=== PATIENT | male | born 1980 | race Two or more races ===

== ENCOUNTER 2017-09-09 06:07 | Emergency (ER) | payer SELFPAY ==
[2017-09-09 06:57] LABS: Hematocrit 52 % (42-52); Hemoglobin 17.7 g/dl (14.0-18.0); Mean Corpuscular HGB Conc 34 g/dl (31-36); Mean Corpuscular Hemoglobin 33 pg (27-31); Mean Corpuscular Volume 97 fL (80-94); Mean Platelet Volume 9 um3 (7.4-10.4); Red Blood Count 5.33 10^6/ul (4.0-5.4); Red Cell Distribution Width 13 % (10.5-15); White Blood Count 9.5 10^3/ul (3.5-10.8)
[2017-09-09 07:12] LABS: Albumin 4.2 g/dL (3.2-5.2); BUN/Creatinine Ratio 9.7 (8-20); C Reactive Protein 2.55 mg/L (< 5.00); Calcium 9.4 mg/dL (8.6-10.3); EGFR African American 105.1 (>60); EGFR Non-African American 81.7 (>60); Globulin 3.2 g/dL (2-4); Total Bilirubin 0.4 mg/dL (0.2-1.0); Total Protein 7.4 g/dL (6.4-8.9); Troponin I 0.01 ng/mL (<0.04)
[2017-09-09 07:17] VITALS: BP 148/92
--- NOTE | 2017-09-09 07:18 | ED ---
Maxim Nielson Nikita, scribed for Vijay Sifuentes MD on 09/09/17 at 0620 . Substance Abuse/Use - HPI Summary HPI Summary: This patient is a 36 year old M BIBA to ED with a chief complaint of cocaine abuse [employer]. The pt crushed 2 lines of cocaine on his lips when the police knocked down his door and cuffed him. The patient rates the pain 0/10 in severity. Symptoms aggravated by nothing. Symptoms alleviated by nothing. Patient reports diaphoresis and difficulty breathing. Patient denies CP and LOC. - History Of Current Complaint Chief Complaint: EDSubstanceAbuse Stated Complaint: OVERDOSE Hx Obtained From: Patient Onset/Duration of Drug/ETOH Abuse: Minutes Ingestion History: Type/Name Of Drug - cocaine, Amount Ingested - 2 lines, crushed Overdose Characteristics: Oral Timing Of Abuse: Binge Use Aggravating Factor(s): Nothing Alleviating Factor(s): Nothing Associated Signs And Symptoms: Other: - Patient reports diaphoresis and difficulty breathing. Patient denies CP and LOC. PMH/Surg Hx/FS Hx/Imm Hx Endocrine/Hematology History: Denies: Hx Diabetes Cardiovascular History: Reports: Other Cardiovascular Problems/Disorders - "irregular heart beat" Denies: Hx Coronary Artery Disease, Hx Hypertension Infectious Disease History: No Infectious Disease History: Denies: Traveled Outside the [place] in Last 30 Days - Family History Known Family History: Positive: Cardiac Disease, Diabetes - Social History Hx Substance Use: Yes Substance Use Type: Reports: Cocaine Review of Systems Positive: Skin Diaphoresis Negative: Chest Pain Positive: Other - difficulty breathing Neurological: Other - denies LOC All Other Systems Reviewed And Are Negative: Yes Physical Exam Triage Information Reviewed: Yes Vital Signs On Initial Exam: Initial Vitals Temp Pulse Resp BP Pulse Ox 97.6 F 82 16 138/65 98 09/09/17 06:10 09/09/17 06:10 09/09/17 06:10 09/09/17 06:10 09/09/17 06:10 Vital Signs Reviewed: Yes Appearance: Positive: Well-Appearing, No Pain Distress Skin: Positive: Warm, Skin Color Reflects Adequate Perfusion, Dry Head/Face: Positive: Normal Head/Face Inspection Eyes: Positive: Other: - pupils are 2mm and reactive to light ENT: Positive: Normal ENT inspection Neck: Positive: Supple, Nontender Respiratory/Lung Sounds: Positive: Clear to Auscultation, Breath Sounds Present Cardiovascular: Positive: RRR Abdomen Description: Positive: Nontender, Soft Bowel Sounds: Positive: Present Musculoskeletal: Positive: Normal, Strength/ROM Intact Neurological: Positive: Normal, Sensory/Motor Intact, Alert, Oriented to Person Place, Time Psychiatric: Positive: Affect/Mood Appropriate Diagnostics - Vital Signs Vital Signs Temp Pulse Resp BP Pulse Ox 09/09/17 06:10 97.6 F 82 16 138/65 98 - Laboratory Lab Results: Lab Results 09/09/17 09/09/17 Range/Units 06:30 06:30 WBC 9.5 (3.5-10.8) 10^3/ul RBC 5.33 (4.0-5.4) 10^6/ul Hgb 17.7 (14.0-18.0) g/dl Hct 52 (42-52) % MCV 97 H (80-94) fL MCH 33 H (27-31) pg MCHC 34 (31-36) g/dl RDW 13 (10.5-15) % Plt Count 210 (150-450) 10^3/ul MPV 9 (7.4-10.4) um3 Neut % (Auto) 55.4 (38-83) % Lymph % (Auto) 35.3 (25-47) % [place] % (Auto) 7.9 (1-9) % Eos % (Auto) 0.9 (0-6) % Baso % (Auto) 0.5 (0-2) % Absolute Neuts (auto) 5.2 (1.5-7.7) 10^3/ul Absolute Lymphs (auto) 3.3 (1.0-4.8) 10^3/ul Absolute Monos (auto) 0.8 (0-0.8) 10^3/ul Absolute Eos (auto) 0.1 (0-0.6) 10^3/ul Absolute Basos (auto) 0 (0-0.2) 10^3/ul Absolute Nucleated RBC 0.01 10^3/ul Nucleated RBC % 0.1 Sodium 136 (133-145) mmol/L Potassium Pending Chloride 103 (101-111) mmol/L Carbon Dioxide 24 (22-32) mmol/L Anion Gap Pending BUN 10 (6-24) mg/dL Creatinine 1.03 (0.67-1.17) mg/dL Est GFR ( Amer) 105.1 (>60) Est GFR (Non-Af Amer) 81.7 (>60) BUN/Creatinine Ratio 9.7 (8-20) Glucose 127 H (70-100) mg/dL Calcium 9.4 (8.6-10.3) mg/dL Total Bilirubin 0.40 (0.2-1.0) mg/dL AST Pending ALT 26 (7-52) U/L Alkaline Phosphatase 67 (34-104) U/L Troponin I 0.01 (<0.04) ng/mL C-Reactive Protein 2.55 (< 5.00) mg/L Total Protein 7.4 (6.4-8.9) g/dL Albumin 4.2 (3.2-5.2) g/dL Globulin 3.2 (2-4) g/dL Albumin/Globulin Ratio 1.3 (1-3) Result Diagrams: 09/09/17 06:30 09/09/17 06:30 Lab Statement: Any lab studies that have been ordered have been reviewed, and results considered in the medical decision making process. - EKG 0616 Cardiac Rate: NL EKG Rhythm: Sinus Rhythm - [address] Segment: Normal Ectopy: None Course/Dx - Course Assessment/Plan: This patient is a 36 year old M BIBA to ED with a chief complaint of cocaine abuse [employer]. The pt crushed 2 lines of cocaine on his lips when the police knocked down his door and cuffed him. The patient rates the pain 0/10 in severity. Symptoms aggravated by nothing. Symptoms alleviated by nothing. Patient reports diaphoresis and difficulty breathing. Patient denies CP and LOC. Medications reviewed. EKG reveals NSR at 78 bpm, nml ST, and no ectopy. Pt will be discharged. Pt is agreeable with this plan. WELL IN ED. BY THE STORY, THE PATIENT ONLY HAD 2 LINES OF COCAINE. D/C HOME; F/U PMD; RETURN IF WORSE. - Diagnoses Provider Diagnoses: Cocaine abuse Discharge - Discharge Plan Condition: Stable Disposition: HOME Patient Education Materials: Cocaine Abuse (ED) Referrals: Non Staff,Doctor [Primary Care Provider] - [facility] [place]Outside] Additional Instructions: FOLLOW UP WITH YOUR DOCTOR. RETURN TO THE EMERGENCY DEPARTMENT FOR ANY WORSENING OF YOUR CONDITION OR QUESTIONS OR CONCERNS. The documentation as recorded by the Maxim acosta Nikita accurately reflects the service I personally performed and the decisions made by me, Vijay Sifuentes MD.
[2017-09-09 07:51] LABS: Potassium 3.1 mmol/L (3.5-5.0)
== END 2017-09-09 07:36 | disposition home or self-care (01) ==
LOC: ED 06:07
DX: F14.10 Cocaine abuse, uncomplicated (principal)
CPT/HCPCS: 36415; 80053; 84484; 85025; 86140; 86703; 93005; 99282

== ENCOUNTER 2018-08-24 02:30 | Emergency (ER) | payer SELFPAY ==
--- NOTE | 2018-08-24 02:56 | ED ---
Complex/Multi-Sys Presentation - HPI Summary HPI Summary: A 37 y/o M presents to ED with c/o lightheadedness onset 0100 this date. Associated sx: diaphoresis.Pt was sleeping and when he woke up, he was diaphoretic and lightheaded. Denies CP, diarrhea, abd pain. Pt notes also having dental pain, he does not have a dentist and is not on ABX. He took a small piece of sublingual suboxone at 2330 yesterday, hoping it would help with the pain. Pt denies taking street drugs. - History Of Current Complaint Chief Complaint: EDGeneral Hx Obtained From: Patient Onset/Duration: Sudden Onset, Still Present Timing: Constant Associated Signs And Symptoms: Positive: Diaphoresis. Negative: Chest Pain, Diarrhea, Abdominal Pain - Allergies/Home Medications Allergies/Adverse Reactions: Allergies Allergy/AdvReac Type Severity Reaction Status Date / Time No Known Allergies Allergy Verified 08/24/18 02:55 PMH/Surg Hx/FS Hx/Imm Hx Previously Healthy: No Endocrine/Hematology History: Denies: Hx Diabetes Cardiovascular History: Reports: Other Cardiovascular Problems/Disorders - "irregular heart beat" Denies: Hx Coronary Artery Disease, Hx Hypertension Infectious Disease History: No Infectious Disease History: Denies: Traveled Outside the [place] in Last 30 Days - Family History Known Family History: Positive: Cardiac Disease - mother - heart transplant, Diabetes - mother - Social History Occupation: Unemployed - OTHER Lives: Alone Alcohol Use: Occasionally Hx Substance Use: Yes Substance Use Type: Reports: Cocaine, Marijuana Hx Tobacco Use: No Smoking Status (MU): Never Smoked Tobacco Review of Systems Positive: Skin Diaphoresis Negative: Chest Pain Negative: Abdominal Pain, Diarrhea Neurological: Other - pos: lightheadedness All Other Systems Reviewed And Are Negative: Yes Physical Exam - Summary Physical Exam Summary: Appearance: Well appearing, no pain distress Skin: warm, lightly diaphoretic, reflects adequate perfusion Head/face: normal Eyes: EOMI, AMBER ENT: mucous membranes moist Dental: multiple caries, some pericoronitis of lower 3rd molars Neck: supple, non-tender Respiratory: CTA, breath sounds present Cardiovascular: pulses symmetrical, arthur but regular, no murmur Abdomen: non-tender, soft Bowel Sounds: present Musculoskeletal: normal, strength/ROM intact Neuro: normal, sensory motor intact, A&Ox3 Triage Information Reviewed: Yes Vital Signs On Initial Exam: Initial Vitals Temp Pulse Resp BP Pulse Ox 97.0 F 62 16 131/64 95 08/24/18 02:40 08/24/18 02:40 08/24/18 02:40 08/24/18 02:40 08/24/18 02:40 Vital Signs Reviewed: Yes Diagnostics - Vital Signs Vital Signs Temp Pulse Resp BP Pulse Ox 08/24/18 02:51 56 4 95 08/24/18 02:40 97.0 F 62 16 131/64 95 - Laboratory Result Diagrams: 08/24/18 02:55 08/24/18 04:15 Lab Statement: Any lab studies that have been ordered have been reviewed, and results considered in the medical decision making process. - EKG 0249 Cardiac Rate: Bradycardia - 43bpm EKG Rhythm: Sinus Bradycardia Summary of EKG Findings: nml axis, J point elevation in v2 and v3 Re-Evaluation - Re-Evaluation 1 Re-Evaluation Time: 04:45 Change: Improved Comment: Discussing results with pt. 2 Re-Evaluation Time: 05:59 Change: Improved Comment: Pt is sleeping comfortably, blood pressures are normal. 3 Re-Evaluation Time: 06:43 Change: Improved Complex Multi-Symp Course/Dx Course Of Treatment: Patient presents with orthostasis, nausea and vomiting after taking Suboxone he obtained from a friend for dental pain. He was a little bradycardic here when symptomatic. This resolved with IV hydration. He received 3 L of IV fluids and antiemetics. His laboratories are relatively benign other than elevated lactate. There is no significant dental infection but I will cover him with penicillin and refer him to dental. He is encouraged to not use any street drugs or prescription medications obtained from others. - Diagnoses Differential Diagnoses/HQI/PQRI: Metabolic Abnormality, Other - Sepsis, drug interaction, drug side effect Provider Diagnoses: Medication side effect, Dental abscess - Critical Care Time Critical Care Time: 30-74 min - 30 mins. CCT is EXCLUSIVE of separately billable procedures. Discharge - Sign-Out/Discharge Documenting (check all that apply): Patient Departure - DC - Discharge Plan Condition: Improved Disposition: HOME Prescriptions: Naproxen [Naproxen 500 mg tab] 500 mg PO BID PRN #12 tablet.dr SUGGS Reason: Pain Ondansetron HCl [Zofran] 4 mg PO TID PRN #12 tablet PRN Reason: Nausea Penicillin VK 500 MG TAB(NF) [Penicillin VK 500 mg Tab] 500 mg PO QID #40 tab Patient Education Materials: Dental Abscess (ED) Forms: *Work Release Referrals: [facility] [Outside] [facility] [Outside] PATRICK CLARKE [Doctor of Dental Surgery] - Additional Instructions: Rosalino Roman (Vincent): -- call today to schedule prompt follow up. Do not take medications that are not prescribed to you. Return if worse, repeat of symptoms, fever, vomiting, new symptoms or other concerns as discussed. - Billing Disposition and Condition Condition: IMPROVED Disposition: Home - Attestation Statements Document Initiated by Aaliyahibmarcus: Yes Documenting Scribe: Toni Ash Provider For Whom Yannick is Documenting (Include Credential): Dr. Sunil Estes MD Scribe Attestation: IToni scribed for Dr. Sunil Estes MD on 08/24/18 at 0713. Scribe Documentation Reviewed: Yes Provider Attestation: The documentation as recorded by the Toni acosta accurately reflects the service I personally performed and the decisions made by me, Dr. Sunil Estes MD
[2018-08-24] MEDS ORDERED: NS 0.9% 1000 ML* 1,000 ML IV ONE ×3 (03:04→05:42)
[2018-08-24 03:26] LABS: Hematocrit 49 % (42-52); Hemoglobin 16.5 g/dl (14.0-18.0); Mean Corpuscular HGB Conc 34 g/dl (31-36); Mean Corpuscular Hemoglobin 33 pg (27-31); Mean Corpuscular Volume 96 fL (80-94); Mean Platelet Volume 8.5 um3 (7.4-10.4); Platelet Count 262 10^3/ul (150-450); Red Blood Count 5.04 10^6/ul (4.00-5.40); Red Cell Distribution Width 13 % (10.5-15); White Blood Count 11.3 10^3/ul (3.5-10.8)
[2018-08-24 03:43] LABS: EGFR Non-African American 85.1 (>60)
[2018-08-24 04:00] LABS: ABS Basophils 0.1 10^3/ul (0-0.2); ABS Neutrophils 4.3 10^3/ul (1.5-7.7); Monocytes % 5 % (0-7)
[2018-08-24] MEDS ORDERED: Ondansetron INJ* 2 MG/ML VIAL IV ONE (05:42)
[2018-08-24 07:03] VITALS: BP 135/78
== END 2018-08-24 07:05 | disposition home or self-care (01) ==
LOC: ED 02:30
DX: R42 Dizziness and giddiness (principal); R11.2 Nausea with vomiting, unspecified; T50.7X5A Adverse effect of analeptics and opioid receptor antagonists, initial encounter; Y92.9 Unspecified place or not applicable; K04.7 Periapical abscess without sinus
CPT/HCPCS: 36415; 80048; 80307; 83605; 84484; 85025; 85060; 93005; 96361; 96374; 96376; 99284; J2405

== ENCOUNTER 2018-11-05 13:46 | Emergency (ER) | payer SELFPAY ==
[2018-11-05 14:11] VITALS: BP 132/89
--- NOTE | 2018-11-05 14:52 | UC ---
Dental HPI - HPI Summary HPI Summary: 37 y/o male presents to the urgent care c/o left upper and lower jaw dental pain worsening for the past 3 days/ pt reports he has some cavities and fracture molars there for the past 4 months. Pain today is 9/10 associated w/ mild swelling in the left lower jaw. He has been taking Ibuprofen PO 400mg PO. Last dose taken was this morning at 0700Am. Pt denies fever, trismus, cough, URI , SOB, chest pain, abdominal pain, N/v/d. - History of Current Complaint Chief Complaint: UCDentalProblem Stated Complaint: TOOTHACHE Time Seen by Provider: 11/05/18 14:30 Hx Obtained From: Patient Onset/Duration: Gradual Onset, Lasting Weeks - 4 months, Still Present, Worse Since - 3 days Severity: Severe Pain Intensity: 9 Pain Scale Used: 0-10 Numeric Aggravating Factor(s): Chewing Alleviating Factor(s): OTC Meds - Allergies/Home Medications Allergies/Adverse Reactions: Allergies Allergy/AdvReac Type Severity Reaction Status Date / Time No Known Allergies Allergy Verified 11/05/18 14:11 PMH/Surg Hx/FS Hx/Imm Hx Previously Healthy: Yes - Pt denies PMHX - Surgical History Surgical History: None - Family History Known Family History: Positive: Cardiac Disease - mother - heart transplant, Diabetes - mother - Social History Occupation: Employed Full-time Lives: With Family Alcohol Use: Occasionally Substance Use Type: Marijuana Substance Use Comment - Amount & Last Used: took suboxone this date 0000 Smoking Status (MU): Never Smoked Tobacco Review of Systems All Other Systems Reviewed And Are Negative: Yes Constitutional: Positive: Negative Skin: Positive: Negative Eyes: Positive: Negative ENT: Positive: Dental Pain - left upper and lower jaw dental pain w/ mild swelling Respiratory: Positive: Negative Cardiovascular: Positive: Negative Gastrointestinal: Positive: Negative Genitourinary: Positive: Negative Motor: Positive: Negative Neurovascular: Positive: Negative Musculoskeletal: Positive: Negative Neurological: Positive: Headache Psychological: Positive: Negative Is Patient Immunocompromised?: No Physical Exam - Summary Physical Exam Summary: Vital Signs Reviewed: Yes General: Well-Appearing, Well-Nourished obese male sitting in the examining table w/o any respiratory or pain distress Eyes: Positive: Conjunctiva Clear - PERRLA, EOMI, ENT: Positive: Normal ENT inspection, Hearing grossly normal, Pharynx normal, TMs normal - B/L external ear canals clear,. Negative: Tonsillar swelling, Tonsillar exudate, Trismus Dental: Positive: Gross Decay/Caries w/ fracture molars #18 and 14 , Abscess @ - gingival swelling and erythema, tender to percussion. involves tissue surrounding the teeth #19, Cervical Lymphadenopathy - anterior Neck: Positive: Supple Respiratory: Positive: Chest non-tender, Lungs clear, Normal breath sounds, No respiratory distress Cardiovascular: Positive: RRR, No Murmur, Pulses Normal, Brisk Capillary Refill Abdomen Description: Positive: Nontender, No Organomegaly, Soft. Negative: CVA Tenderness (R), CVA Tenderness (L) Bowel Sounds: Positive: Present Musculoskeletal: Positive: Strength Intact, ROM Intact, No Edema Neurological Exam: Normal Psychological Exam: Normal Skin Exam: Normal Triage Information Reviewed: Yes Vital Signs: Initial Vital Signs Temp 97.1 F 11/05/18 14:07 Pulse 88 11/05/18 14:07 Resp 18 11/05/18 14:07 BP 132/89 11/05/18 14:07 Pulse Ox 98 11/05/18 14:07 Dental Complaint Course/Dx - Course Course Of Treatment: 37 y/o male presents to the urgent care c/o left upper and lower jaw dental pain worsening for the past 3 days/ pt reports he has some cavities and fracture molars there for the past 4 months. Pain today is 9/10 associated w/ mild swelling in the left lower jaw. He has been taking Ibuprofen PO 400mg PO. Last dose taken was this morning at 0700Am. Pt denies fever, trismus, cough, URI, SOB, chest pain, abdominal pain, N/v/d. Hx obtained. Pt with dental abscess on examination. Pt given Ibuprofen PO and viscous Lidocaine at the clinic by Nurse to alleviate symptoms. Pt tolerated well medication adn pain decrease. Pt Rx Clindamycin PO and Ibuprofen PO and viscous Lidocaine as directed below to alleviate symptoms. Pt strongly advised to f/u with Dentist as soon as possible further evaluation and treatment. Pt understood and agreed with plan of care. Left the clinic ambulating. - Differential Dx/Diagnosis Differential Diagnosis/Dx: Dental Abscess, Fractured Tooth, Odontogenic Pain, Peridontic Disease, Pharyngitis, Tonsillitis Provider Diagnosis: Dental abscess, Dental cavities Discharge - Sign-Out/Discharge Documenting (check all that apply): Patient Departure - D/c home All imaging exams completed and their final reports reviewed: No Studies - Discharge Plan Condition: Stable Disposition: HOME Prescriptions: Clindamycin Cap(NF) [Clindamycin Cap 300 mg Cap(NF)] 300 mg PO Q6H #40 cap Ibuprofen TAB* [Motrin TAB* 800 MG] 800 mg PO Q6H PRN #30 tab PRN Reason: dental pain Lidocaine 2% VISCOUS* [Xylocaine 2% Viscous*] 15 ml SWISH SPIT Q6H PRN #1 btl PRN Reason: dental pain Patient Education Materials: Dental Abscess (ED) Referrals: [facility] [place] [facility] [Outside] - 3 Days Additional Instructions: 1-Please take full course of antibiotic to avoid resistance. Take yogurt w/ Probiotics or Culturelle to protect your GI system 2- Take Ibuprofen PO q6-8hrs as instructed after meals to alleviate pain and swelling. Take viscous Lidocaine to alleviate dental pain 3- F/u with your Dentist or Dental List provided as soon as possible for further treatment. 4- If symptoms do not improve or worsen please return to the urgent care or f/u with your PCP in 3 dys for further evaluation and treatment - Billing Disposition and Condition Condition: STABLE Disposition: Home
[2018-11-05] MEDS: Ibuprofen TAB* 400 MG PO ONE (14:53)
[2018-11-05] MEDS: Lidocaine 2% VISCOUS* 15 ML UDC PO ONE (14:53)
== END 2018-11-05 15:04 | disposition home or self-care (01) ==
LOC: UCEAST 13:46
DX: K04.7 Periapical abscess without sinus (principal); K02.9 Dental caries, unspecified
CPT/HCPCS: 99212; A9270-GY; G0463

== ENCOUNTER 2020-02-04 18:11 | Emergency (ER) | payer OTHER ==
--- NOTE | 2020-02-04 18:45 | ED ---
Respiratory - HPI Summary HPI Summary: Patient complains of cough 4 days and throat "closing up" starting 1 hour ago after smoking marijuana acquired off the street. Symptoms of throat closing up have been improving since initial onset. Admits to "new source" of marijuana. Denies fever, CP, N/V/D, abdominal pain, change in hearing, change in BM. Chronic marijuana smoker. Denies recent travel or known covid exposure. Denies medical history. - History of Current Complaint Stated Complaint: COUGH AND SOB PER PT Time Seen by Provider: 02/04/20 18:18 Hx Obtained From: Patient Onset/Duration: Sudden Onset Current Severity: None Pain Intensity: 0 Character: Cough (Nonproductive) Sputum Amount: None Aggravating Factor(s): Nothing Alleviating Factor(s): Spontaneous Resolution Associated Signs and Symptoms: SOB - Allergy/Home Medications Allergies/Adverse Reactions: Allergies Allergy/AdvReac Type Severity Reaction Status Date / Time No Known Allergies Allergy Verified 02/04/20 18:31 Home Medications: Home Medications NK [No Home Medications Reported] 02/04/20 [History Confirmed 02/04/20] PMH/Surg Hx/FS Hx/Imm Hx Endocrine/Hematology History: Denies: Hx Diabetes Cardiovascular History: Reports: Other Cardiovascular Problems/Disorders - "irregular heart beat" Denies: Hx Coronary Artery Disease, Hx Hypertension History: Denies: Hx Dialysis Sensory History: Denies: Hx Eye Prosthesis Opthamlomology History: Denies: Hx Legally Blind EENT History: Denies: Hx Deafness Neurological History: Denies: Hx Dementia Infectious Disease History: No Infectious Disease History: Denies: Traveled Outside the [place] in Last 30 Days - Family History Known Family History: Positive: Cardiac Disease - mother - heart transplant, Diabetes - mother - Social History Alcohol Use: Occasionally Hx Substance Use: Yes Substance Use Type: Reports: Marijuana Substance Use Comment - Amount & Last Used: only smokes weed. Hx Tobacco Use: No Smoking Status (MU): Never Smoked Tobacco Review of Systems Constitutional: Negative Eyes: Negative Positive: Other - felt like throat closing, denies pain. Cardiovascular: Negative Positive: Shortness Of Breath, Cough Gastrointestinal: Negative Genitourinary: Negative Musculoskeletal: Negative Skin: Negative Neurological/Mental Status: Negative Psychological: Normal All Other Systems Reviewed And Are Negative: Yes Physical Exam Triage Information Reviewed: Yes Vital Signs On Initial Exam: Initial Vitals Temp Pulse Resp BP Pulse Ox 98.8 F 85 22 154/91 97 02/04/20 18:28 02/04/20 18:28 02/04/20 18:28 02/04/20 18:28 02/04/20 18:28 Vital Signs Reviewed: Yes Appearance: Positive: Well-Appearing Skin: Positive: Warm Head/Face: Positive: Normal Head/Face Inspection Eyes: Positive: Normal ENT: Positive: Normal ENT inspection Neck: Positive: Supple Respiratory/Lung Sounds: Positive: Clear to Auscultation Cardiovascular: Positive: Normal Abdomen Description: Positive: Nontender Musculoskeletal: Positive: Normal Neurological: Positive: Normal Psychiatric: Positive: Normal AVPU Assessment: Alert Procedures - Sedation Patient Received Moderate/Deep Sedation with Procedure: No Diagnostics - Vital Signs Vital Signs Temp Pulse Resp BP Pulse Ox 02/04/20 18:28 98.8 F 85 22 154/91 97 - Laboratory Result Diagrams: 02/04/20 18:30 02/04/20 18:30 Lab Statement: Any lab studies that have been ordered have been reviewed, and results considered in the medical decision making process. Disposition - Course Course Of Treatment: Patient complains of cough 4 days and throat "closing up" starting 1 hour ago after smoking marijuana acquired off the street. Symptoms of throat closing up have been improving since initial onset. Admits to "new source" of marijuana. Denies fever, CP, N/V/D, abdominal pain, change in hearing, change in BM. Chronic marijuana smoker. Denies recent travel or known covid exposure. Denies medical history. Vital signs within normal limits. Labs unremarkable. Chest x-ray unremarkable. Flu negative. Discharge with instructions for quarantine pending Covid results - Diagnoses Provider Diagnoses: Shortness of breath, Cough, Marijuana use Discharge ED - Sign-Out/Discharge Documenting (check all that apply): Patient Departure - Discharge Plan Condition: Stable Disposition: HOME Patient Education Materials: Acute Cough (ED) Forms: COVID-19 Tested & Isolation Referrals: No Primary Care Phys,NOPCP [Primary Care Provider] - Additional Instructions: Please follow instructions for self quarantine until you are symptom-free. You will be notified if you are positive for the coronavirus. Return to the ED for any new or worsening symptoms. - Billing Disposition and Condition Condition: STABLE Disposition: Home
[2020-02-04 19:10] LABS: ABS Eosinophils 0.1 10^3/ul (0-0.6); ABS Lymphocytes 2.5 10^3/ul (1.0-4.8); ABS Monocytes 0.7 10^3/ul (0-0.8); ABS Neutrophils 4.2 10^3/ul (1.5-7.7); Eosinophil % 1.4 %; Hematocrit 47 % (42-52); Hemoglobin 16.1 g/dL (14.0-18.0); Mean Corpuscular HGB Conc 35 g/dL (31-36); Mean Corpuscular Hemoglobin 33 pg (27-31); Mean Corpuscular Volume 95 fL (80-94); Mean Platelet Volume 8.5 fL (7.4-10.4); Nucleated Red Blood Cells % 0.3; Platelet Count 203 10^3/uL (150-450); Red Blood Count 4.91 10^6 /uL (4.18-5.48); Red Cell Distribution Width 13 % (10-15); White Blood Count 7.5 10^3/uL (3.5-10.8)
[2020-02-04 19:28] LABS: Influenza A Molecular Negative (Negative); Influenza B Molecular Negative (Negative)
[2020-02-04 19:29] LABS: ALT 40 U/L (7-52); Albumin 3.7 g/dL (3.2-5.2); Albumin/Globulin Ratio 1.2 (1-3); Alkaline Phosphatase 64 U/L (34-104); BUN/Creatinine Ratio 14.1 (8-20); Blood Urea Nitrogen 13 mg/dL (6-24); C Reactive Protein 5.68 mg/L (<8.01); CO2 Carbon Dioxide 25 mmol/L (22-32); Calcium 9.4 mg/dL (8.6-10.3); Chloride 103 mmol/L (101-111); EGFR African American 110.8 (>60); EGFR Non-African American 91.6 (>60); Globulin 3.1 g/dL (2-4); Glucose 145 mg/dL (70-100); Sodium 136 mmol/L (135-145); Total Protein 6.8 g/dL (6.4-8.9)
[2020-02-04 19:30] LABS: Anion Gap 8 mmol/L (2-11)
[2020-02-04 21:05] VITALS: BP 142/91
== END 2020-02-04 21:04 | disposition home or self-care (01) ==
LOC: ED 18:11
DX: R05 Cough (principal); R06.02 Shortness of breath; F12.90 Cannabis use, unspecified, uncomplicated
CPT/HCPCS: 36415; 71045; 80053; 85025; 86140; 87635; 99282; G2023